=== PATIENT | female | born 1995 | race Caucasian/White ===

== ENCOUNTER 2018-06-07 16:54 | Outpatient (CLI) | payer MEDICAID ==
[2018-06-07 17:35] LABS: APPEARANCE,URINE CLOUDY; BILIRUBIN,URINE NEGATIVE (NEGATIVE); COLOR,URINE YELLOW; GLUCOSE, URINE NEGATIVE (NEGATIVE); KETONES,URINE NEGATIVE (NEGATIVE); LEUKOCYTE ESTERASE,URINE MODERATE (NEGATIVE); NITRITE,URINE NEGATIVE (NEGATIVE); PROTEIN,URINE NEGATIVE (NEGATIVE); URINE SPECIFIC GRAVITY 1.013; UROBILINOGEN,URINE NEGATIVE mg/dL (<2.0)
[2018-06-07 17:54] LABS: URINE AMPHETAMINES SCREEN NEGATIVE; URINE BARBITURATES SCREEN NEGATIVE; URINE BENZODIAZEPINES SCREEN NEGATIVE; URINE COCAINE SCREEN NEGATIVE; URINE MARIJUANA (THC) SCREEN NEGATIVE; URINE METHADONE SCREEN NEGATIVE; URINE PHENCYCLIDINE SCREEN NEGATIVE
--- NOTE | 2018-06-07 18:50 | Non Stress Test Report ---
Non Stress Test Datetime Report Generated by CPN: 06/07/2018 18:49 DEMOGRAPHIC EGA NST: 40.1 INDICATION Indication for Study: Ordered by Provider; Other Indication for Study (NST) Other: labor check MONITORING Monitor Explained: Monitor Explained; Test Explained; Patient Verbalized Understanding Time on Monitor: 06/07/2018 17:35 Time off Monitor: 06/07/2018 18:26 NST Duration: 51 NST INTERVENTIONS NST Interventions: None BABY A: [id number] BABY A Movement : Present Contraction Frequency : 2-6 FHR Baseline : 135 Accelerations : 15X15 Decelerations : None Variability : Moderate 6-25bpm NST Review: Questionable if Meets Criteria for Reactive NST NST Results: Reactive NST REPORT Report Trigger: Send Report
== END 2018-06-07 18:45 | disposition home or self-care (01) ==
LOC: LC 16:54
PROVIDERS: ATTEND Obstetrics & Gynecology
PROC: 4A1HXCZ Monitoring of Products of Conception, Cardiac Rate, External Approach (ICD-10-PCS; principal; 2018-06-07)
DX: O47.1 False labor at or after 37 completed weeks of gestation (principal); O48.0 Post-term pregnancy; Z3A.40 40 weeks gestation of pregnancy
CPT/HCPCS: 59025; 80307; 81005

== ENCOUNTER 2018-06-07 22:59 | Inpatient (IN) | payer MEDICAID ==
[2018-06-07] MEDS ORDERED: OXYTOCIN 10 UNIT/ML VIAL ONE (23:17)
[2018-06-07] MEDS ORDERED: MISOPROSTOL 0.2 MG TABLET ONE (23:17)
[2018-06-07] MEDS ORDERED: OXYTOCIN/NORMAL SALINE 20 UNIT/1,000 ML RTUINJ ONE (23:17)
[2018-06-07] MEDS ORDERED: LIDOCAINE 1% INJ-PF (10 MG/ML) 30 ML SDV ONE (23:17)
[2018-06-07] MEDS ORDERED: RINGERS SOLUTION,LACTATED 1,000 ML IV ONE (23:21)
[2018-06-07] MEDS ORDERED: RINGERS SOLUTION,LACTATED 1,000 ML IV PRN (23:21)
[2018-06-07 23:37] LABS: APPEARANCE,URINE SLIGHTLY-CLOUDY; BILIRUBIN,URINE NEGATIVE (NEGATIVE); GLUCOSE, URINE NEGATIVE (NEGATIVE); KETONES,URINE TRACE mg/dL (NEGATIVE); LEUKOCYTE ESTERASE,URINE SMALL (NEGATIVE); NITRITE,URINE NEGATIVE (NEGATIVE); PROTEIN,URINE 30 mg/dL (NEGATIVE); URINE SPECIFIC GRAVITY 1.024
[2018-06-07 23:40] LABS: COLOR,URINE DARK YELLOW
[2018-06-07 23:53] LABS: URINE AMPHETAMINES SCREEN NEGATIVE; URINE BARBITURATES SCREEN NEGATIVE; URINE BENZODIAZEPINES SCREEN NEGATIVE; URINE COCAINE SCREEN NEGATIVE; URINE MARIJUANA (THC) SCREEN NEGATIVE; URINE METHADONE SCREEN NEGATIVE; URINE PHENCYCLIDINE SCREEN NEGATIVE
[2018-06-07] MEDS ORDERED: FENTANYL CITRATE INJ/PF 100 MCG/2 ML AMPUL ONE (23:53)
[2018-06-07] MEDS ORDERED: EPHEDRINE SULFATE INJ 50 MG/1 ML AMPULE ONE (23:53)
[2018-06-07] MEDS ORDERED: PHENYLEPHRINE HCL INJ/PF 10 MG/1 ML SDV ONE (23:53)
[2018-06-07] MEDS ORDERED: BUPIVACAINE HCL 0.25 % INJ/PF (2.5 MG/1 ML) 30 ML VIAL ONE (23:54)
[2018-06-07] MEDS ORDERED: LIDOCAINE 1.5%/EPINEPHRINE INJ-PF 30 ML SDV ONE (23:54)
[2018-06-07] MEDS ORDERED: FENTANYL/BUPIVACAINE/NS/PF 300 MCG/150 ML RTUINJ EPI ONE (23:54)
[2018-06-07 23:59] LABS: ABSOLUTE LYMPHOCYTES (AUTO) 1.8 10^3/uL (0.5-4.7); ABSOLUTE MONOCYTES (AUTO) 1.2 10^3/uL (0.1-1.4); ABSOLUTE NEUT (AUTO) 14.8 10^3/uL (1.7-8.2); BASOPHILS % (AUTO) 0.2 % (0-2); EOSINOPHILS % (AUTO) 0.3 % (0-6); HEMOGLOBIN 11.8 g/dL (12.0-15.5); LYMPHOCYTES % (AUTO) 10.3 % (13-45); MEAN CORPUSCULAR HEMOGLOBIN 32.6 pg (27.0-33.4); MEAN CORPUSCULAR HGB CONC 33.7 g/dL (32.0-36.0); MEAN CORPUSCULAR VOLUME 97 fl (80-97); MONOCYTES % (AUTO) 6.7 % (3-13); PLATELET COUNT 215 10^3/uL (150-450); RED BLOOD COUNT 3.61 10^6/uL (3.72-5.28); RED CELL DISTRIBUTION WIDTH 14.3 % (11.5-14.0); SEGMENTED NEUTROPHILS % (AUTO) 82.5 % (42-78); TOTAL CELLS COUNTED % (AUTO) 100 %; WHITE BLOOD COUNT 17.9 10^3/uL (4.0-10.5)
--- NOTE | 2018-06-07 23:59 | Admission Physical ---
Datetime Report Generated by CPN: 06/07/2018 23:59 CURRENT ADMISSION Chief Complaint: Uterine Contractions Indication for Induction: Not Applicable Admit Impression : Term, Intrauterine ; Active Labor Admit Plan: Admit to Unit; Initiate Labor Protocol ALLERGIES Medication Allergies: No Medication Allergies: Sulfa (Sulfonamide Antibiotics) (06/07/2018) Latex: Unknown OBSTETRICAL HISTORY EDC: 06/06/2018 00:00 : 7 Para: 0 Term: 0 : 0 SAB: 0 IAB: 0 Ectopic: 0 Livin Cesareans: 0 VBACs: 0 Multiple Births: 0 Gestational Diabetes: No Rh Sensitization: No Incompetent Cervix: No CLAY: No Infertility: No ART Treatment: No Uterine Anomaly: No IUGR: No Hx Previous C/S: No Macrosomia: No Hx Loss/Stillborn: No PIH: No Hx : No Placenta Previa/Abruption: No Depression/PP Depression: No PTL/PROM: No Post Hemorrhage: No Current Procedures: Ultrasound Obstetrical History Comments: G1 2015 uncertain of gestational age, no D_C required G2- uncertain of gestational age, no D_C required 2017 Current SEE RECORDS Alcohol: No Marijuana : No Cocaine: No Other Illicit Drugs: No Cigarettes: Current Everyday Smoker. [id number] Cigarette Frequency: 5 - 10 per day Advised to Stop: Yes MEDICAL HISTORY Diabetes: No Blood Transfusion: No Pulmonary Disease (Asthma, TB): No Breast Disease: Yes Hypertension: No Rehab Tech Surgery: No Heart Disease: No Hosp/Surgery: No Autoimmune Disorder: No Anesthetic Complications: No Kidney Disease: No Abnormal Pap Smear: No Neuro/Epilepsy: No Psychiatric Disorders: No Other Medical Diseases: No Hepatitis/Liver Disease: No Significant Family History: No Varicosities/Phlebitis: No Trauma/Violence : No Thyroid Dysfunction: No Medical History Comments: Breast Absess in 2017 INFECTIOUS HISTORY Gonorrhea: No Genital Herpes: No Chlamydia: No Tuberculosis: No Syphilis: No Hepatitis: No HIV/AIDS Exposure: No Rash or Viral Illness: No HPV: No PHYSICAL EXAM General: Normal HEENT: Normal Neurologic: Normal Thyroid: Normal Heart: Normal Lungs: Normal Breast: Normal Back: Normal Abdomen: Normal Genitourinary Exam: Normal Extremities: Normal DTRs: Normal Pelvic Type: Adequate Vital Signs: Reviewed; Within Normal Limits VAGINAL EXAM Dilatation: 8 Effacement: 100 Station: 0 Contraction Comments: q 1-5 min MEMBRANES Membranes: Intact FETUS A EGA: 40.1 Monitoring: External US; Internal Scalp Electrode FHR- Baseline: 130-140s Accelerations: 15X15 Decelerations: None FHR Category: Category I Admit Comment: Pt arrived via ambulance; GBS neg PLANS FOR LABOR AND DELIVERY Labor and Delivery: None Pain Management: Epidural Feeding Preference: Breast Benefit of Breast Feed Discussed: Yes Circumcision: Yes INFORMED CONSENT Signature: with User ID: [email or web address]
--- NOTE | 2018-06-08 02:04 | L&D Progress Notes ---
PROGRESS NOTES Datetime Report Generated by CPN: 06/08/2018 02:03 PROGRESS NOTE Impression: Arrest of Dilatation/Descent Procedures: Sterile Vag Exam Plan: Augmentation Vital Signs : Reviewed; Within Normal Limits VAGINAL EXAM Dilatation: 8 Dilatation: 8 Effacement: 100 Effacement: 100 Station: 0 Station: 0 Contractions: q 2-4 min Contractions: q 1-5 min LAST VAGINAL EXAM-NURSING Dilitation: 8.0 Dilitation: 9.0 Dilitation: 8.0 Dilitation: 3.0 Dilitation: 3.0 Effacement: 100 Effacement: 90 Effacement: 100 Effacement: 80 Effacement: 80 Station: 0 Station: 0 Station: 0 Station: -1 Station: -1 MEMBRANES Membranes: Ruptured Membranes: Intact FETUS A FHR - Baseline: 140 Monitoring: External US Variability: Moderate 6-25bpm Accelerations: 15X15 Decelerations: Early FHR Category: Category II : 40.1 SIGNATURE SIGNATURE: ,[id number];,[id number];,[id number] SIGNATURE: ,[id number];14,[id number] SIGNATURE: 14,[id number] Signature: with User ID: [email or web address]
[2018-06-08] MEDS ORDERED: DIBUCAINE 1% OINTMENT 28 GM TP PRN (05:48)
[2018-06-08] MEDS ORDERED: ZOLPIDEM TARTRATE 5 MG TABLET PO PRN (05:48)
[2018-06-08] MEDS ORDERED: OXYTOCIN/NORMAL SALINE 20 UNIT/1,000 ML RTUINJ IV PRN (05:48)
[2018-06-08] MEDS ORDERED: DIPH/PERTUSS(ACELL)/TETANUS VAC/PF 0.5 ML SYR (>=10YO) IM PRN (05:48)
[2018-06-08] MEDS ORDERED: MEASLES,MUMPS&RUBELLA VACC/PF 0.5 ML VIAL SUBCUT PRN (05:48)
[2018-06-08] MEDS ORDERED: HYDROCODONE/ACETAMINOPHEN 5-325 MG TABLET PO PRN (05:48)
[2018-06-08] MEDS ORDERED: ONDANSETRON HCL 8 MG TABLET PO PRN (05:49)
[2018-06-08] MEDS ORDERED: IBUPROFEN 800 MG TABLET ONE (06:38)
[2018-06-08] MEDS: IBUPROFEN 800 MG TABLET PO PRN ×2 (06:52→22:18)
--- NOTE | 2018-06-08 06:56 | Delivery Summary ---
Del Sum A-C Datetime Report Generated by CPN: 06/08/2018 06:56 DELIVERY PERSONNEL DELIVERY PERSONNEL: [id number] Delivery Doctor:: Eddie Swan MD Labor and Delivery Nurse:: Myla Gayle RN Labor and Delivery Nurse:: Livier Roche RN [place]/GRADES 1 THRU 6 HOME TEACHER: Gwen Storm ST Additional Personnel: : Angeles Melton RN MATERNAL INFORMATION Delivery Anesthesia: Epidural Medications After Delivery: Pitocin Drip 20 Units/1000ml NSS Maternal Complications: None Provider Comments: Pt C_P. Head del OA. Ant and post shoulder del followed by rest of body. Baby placed on mom's abdomen. After _1min, cord clamped x 2 and cut. Cord blood collected. Placenta del intact with 3VC. LABOR SUMMARY EDC: 06/06/2018 00:00 No. Babies in Womb: 1 Attempted: No Labor Anesthesia: Epidural LABOR INFORMATION Reason for Induction: Not Applicable Onset of Labor: 06/07/2018 23:15 Complete Dilatation: 06/08/2018 03:24 Oxytocin: N/A Group B Beta Strep: Negative Antibiotics # of Doses: 0 Steroids Given: None Reason Steroids Not Administered: Not Applicable MEMBRANES Membranes Rupture Method: Spontaneous Rupture of Membranes: 06/08/2018 00:39 Length of Rupture (hr): 4.60 Amniotic Fluid Color: Clear Amniotic Fluid Amount: Small Amniotic Fluid Odor: Normal STAGES OF LABOR Stage 1 hr: 4 Stage 1 min: 9 Stage 2 hr: 1 Stage 2 min: 51 Stage 3 hr: 0 Stage 3 min: 5 Total Time in Labor hr: 6 Total Time in Labor min: 5 VAGINAL DELIVERY Episiotomy: None Laceration #1: Vaginal Laceration Extension #1: First Degree Other Laceration: Bilateral labial Laceration Repair: Yes Laceration Repair Note: Vaginal and labial lacs repaired in interrupted fashion with 3.0 Vicryl Sponge Count Correct: N/A Sharps Count Correct: Yes CSECTION DELIVERY Primary Indication: N/A Secondary Indication: N/A CSection Incidence: N/A Labor: N/A Elective: N/A CSection Incision: N/A BABY A INFORMATION Infant Delivery Date/Time: 06/08/2018 05:15 Method of Delivery: Vaginal Born in Route : No : N/A Forceps: N/A Vacuum Extraction: N/A Shoulder Dystocia : No PRESENTATION/POSITION BABY A Presentation: Cephalic Cephalic Presentation: Vertex Breech Presentation: N/A PLACENTA INFORMATION BABY A Placenta Delivery Time : 06/08/2018 05:20 Placenta Method of Delivery: Spontaneous Placenta Status: Delivered SCORES BABY A Heart Rate 1 min: >100 bpm Resp Effort 1 min: Good Cry Reflex Irritability 1 min: Cough or Sneeze or Pulls Away Muscle Tone 1 min: Active Motion Color 1 min: Body [place], Extremities Blue Resuscitation Effort 1 min: Tactile Stimulation SCORE 1 MIN: 9 Heart Rate 5 min: >100 bpm Resp Effort 5 min: Good Cry Reflex Irritability 5 min: Cough or Sneeze or Pulls Away Muscle Tone 5 min: Active Motion Color 5 min: Body [place], Extremities Blue Resuscitation Effort 5 min: Tactile Stimulation SCORE 5 MIN: 9 INFANT INFORMATION BABY A Gestational Age at Delivery: 40.2 Gestational Status: Full Term- 39- 40.6 Weeks Outcome : Liveborn Condition : Stable Infant Sex: Male IDENTIFICATION BABY A Infant Verification Date/Time: 06/08/2018 05:24 ID Band Number: [id number] Mother's Name Verified: Yes RN Verifying Infant: SRadha Gayle, RNC Additional Verifying Personnel: HRadha Storm, REFINERY OPERATOR HELPER CRUDE UNIT WEIGHT/LENGTH BABY A Birthweight (gm): 2942 Infant Weight (lb): 6 Weight (oz): 8 Infant Length (in): 18.50 Length (cm): 46.99 CORD INFORMATION BABY A No. Cord Vessels: 3 Nuchal Cord : N/A Cord Blood Taken: Yes-For Eval (Mom's Blood Type - or O+) Suction: Mouth; Nose ASSESSMENT BABY A Complications: Other Infant Complications- Other: Terminal meconium Physical Findings at Delivery: Molding of the Head Respirations: Appears Normal Skin to Skin: Yes Cage Operator/ALS Called : No Infant Care By: B. Ring RN Transferred To: Remains with Mother BABY B INFORMATION : N/A SIGNATURES Signature: with User ID: [email or web address] : I was personally available for consultation and serving as supervising physician for the MLP.
[2018-06-08] MEDS ORDERED: PRENATAL VITAMIN W DHA CAPSULE PO ONE (09:38)
[2018-06-08] MEDS ORDERED: FERROUS SULFATE 325 MG TABLET PO ONE (09:39)
[2018-06-08] MEDS ORDERED: DOCUSATE SODIUM 100 MG CAPSULE ONE (09:39)
[2018-06-08] MEDS ORDERED: SENNOSIDES/DOCUSATE 8.6-50 MG 1 EACH TABLET ONE (09:39)
[2018-06-08] MEDS: FERROUS SULFATE 325 MG TABLET PO SCH ×2 (09:48→17:25)
[2018-06-08] MEDS: PRENATAL VITAMIN W DHA CAPSULE PO SCH (09:48)
[2018-06-08] MEDS: DOCUSATE SODIUM 100 MG CAPSULE PO SCH ×2 (09:48→17:24)
[2018-06-08] MEDS: SENNOSIDES/DOCUSATE 8.6-50 MG 1 EACH TABLET PO SCH (09:48)
[2018-06-09] MEDS: IBUPROFEN 800 MG TABLET PO PRN ×3 (06:53→21:35)
[2018-06-09 07:26] LABS: HEMOGLOBIN 9.9 g/dL (12.0-15.5); MEAN CORPUSCULAR HEMOGLOBIN 33.1 pg (27.0-33.4); MEAN CORPUSCULAR HGB CONC 34.1 g/dL (32.0-36.0); MEAN CORPUSCULAR VOLUME 97 fl (80-97); PLATELET COUNT 167 10^3/uL (150-450); RED BLOOD COUNT 2.98 10^6/uL (3.72-5.28); RED CELL DISTRIBUTION WIDTH 14.4 % (11.5-14.0)
[2018-06-09] MEDS: FERROUS SULFATE 325 MG TABLET PO SCH ×2 (09:52→17:40)
[2018-06-09] MEDS: PRENATAL VITAMIN W DHA CAPSULE PO SCH (09:52)
[2018-06-09] MEDS: SENNOSIDES/DOCUSATE 8.6-50 MG 1 EACH TABLET PO SCH (09:53)
[2018-06-09] MEDS: DOCUSATE SODIUM 100 MG CAPSULE PO SCH ×2 (09:53→17:40)
--- NOTE | 2018-06-09 10:17 | PDOC PROGRESS REPORT ---
Subjective-OB Progress Note for:: 06/09/18 Subjective: reports bleeding slowing, pain controlled with current meds, denies needs Physical Exam (OB) Vital Signs: Temp Pulse Resp BP Pulse Ox 98.0 F 92 18 117/66 100 06/09/18 08:18 06/09/18 08:18 06/09/18 08:18 06/09/18 08:18 06/09/18 08:18 Intake & Output 06/08/18 06/09/18 06/10/18 06:59 06:59 06:59 Intake Total 800 Balance 800 Weight 67.4 kg - Abdomen Description: Soft, Round Hernia Present: No Fundal Description: Firm, Midline Fundal Height: u/u - u/2 - Abdominal Distension: No distension Tenderness: Nontender - Extremities Lower extremities: Shamir's sign - neg Calf: Normal, Nontender Objective-Diagnostic Laboratory: 06/09/18 07:09 06/09/18 07:09 WBC 12.0 H RBC 2.98 L Hgb 9.9 L Hct 29.0 L MCV 97 MCH 33.1 MCHC 34.1 RDW 14.4 H Plt Count 167 Assessment and Plan(PN) - Assessment and Plan (1) Normal vaginal delivery Is this a current diagnosis for this admission?: Yes - Time Spent with Patient Time with patient: Less than 15 minutes - Disposition Anticipated Discharge: Home Within: within 24 hours
[2018-06-09] MEDS: BENZOCAINE/MENTHOL AEROSOL SPRAY 56 ML TOP PRN (21:36)
[2018-06-10] MEDS: BENZOCAINE/MENTHOL AEROSOL SPRAY 56 ML TOP PRN (05:43)
[2018-06-10] MEDS: IBUPROFEN 800 MG TABLET PO PRN (05:44)
[2018-06-10 08:34] VITALS: BP 119/79
--- NOTE | 2018-06-10 08:37 | PDOC PROGRESS REPORT ---
Subjective-OB Progress Note for:: 06/10/18 Subjective: Doing well, no c/o, ready to go home, voiding, eting well, scant bleeding Physical Exam (OB) Vital Signs: Temp Pulse Resp BP Pulse Ox 97.5 F 78 16 119/79 100 06/10/18 07:52 06/10/18 07:52 06/10/18 07:52 06/10/18 07:52 06/10/18 07:52 Intake & Output 06/09/18 06/10/18 06/11/18 06:59 06:59 06:59 Intake Total 800 Balance 800 - PIH/Pre-Eclampsia Clonus: Negative Headache: Absent Epigastric Pain: No Visual Changes: No - Lochia Lochia Amount: Scant < 10 ml Lochia Color: Rubra/Red - Abdomen Description: Soft, Round Hernia Present: No Fundal Description: Firm, Midline Fundal Height: u/u - u/2 Objective-Diagnostic Laboratory: 06/09/18 07:09 Assessment and Plan(PN) - Assessment and Plan (1) Normal vaginal delivery Is this a current diagnosis for this admission?: Yes - Time Spent with Patient Time with patient: Less than 15 minutes Medications reviewed and adjusted accordingly: Yes - Disposition Anticipated Discharge: Home Within: within 24 hours
--- NOTE | 2018-06-10 08:42 | PDOC DISCHARGE SUMMARY ---
Final Diagnosis Discharge Date: 06/10/18 - Final Diagnosis (1) Normal vaginal delivery Is this a current diagnosis for this admission?: Yes Discharge Data - Discharge Medication Home Medications: Vits96/Iron Fum/Folic [ Tablet] 1 each PO DAILY 06/08/18 Gestational Age: 40.2 Reason(s) for Admission: Onset of Labor Admission Note: augmentation Procedures: NST, Ultrasound Intrapartum Procedure(s): Spontaneous Vaginal Delivery Complication(s): Laceration-Vaginal, Laceration-Labial Laceration-Degree: 1st - Data Baby 1 Male at 1 minute: 9 at 5 minutes: 9 Weight: 2.948 kg Home with Mother: Yes Complications: No - Diagnosis Test Laboratory: Temp Pulse Resp BP Pulse Ox 97.5 F 78 16 119/79 100 06/10/18 07:52 06/10/18 07:52 06/10/18 07:52 06/10/18 07:52 06/10/18 07:52 06/07/18 06/07/18 06/09/18 23:10 23:48 07:09 RBC 3.61 L 2.98 L Hgb 11.8 L 9.9 L Hct 35.0 L 29.0 L Urine Opiates Screen NEGATIVE - Discharge information/Instructions Discharge Activity: No Lifting Over 10 Pounds, No Lifting/Push/Pulling, Pelvic Rest Discharge Diet: As Tolerated, Regular Disposition: HOME, SELF-CARE Follow up with: [facility] in: 2, Weeks
[2018-06-10] MEDS: DOCUSATE SODIUM 100 MG CAPSULE PO SCH (10:25)
[2018-06-10] MEDS: FERROUS SULFATE 325 MG TABLET PO SCH (10:25)
[2018-06-10] MEDS: SENNOSIDES/DOCUSATE 8.6-50 MG 1 EACH TABLET PO SCH (10:25)
[2018-06-10] MEDS: PRENATAL VITAMIN W DHA CAPSULE PO SCH (10:25)
== END 2018-06-10 12:36 | disposition home or self-care (01) | DRG 807 ==
LOC: LC 22:59 → LR 23:22 → 2S 06-08 17:14
PROVIDERS: ADMIT Obstetrics & Gynecology; ATTEND Obstetrics & Gynecology
PROC: 10E0XZZ Delivery of Products of Conception, External Approach (ICD-10-PCS; principal; 2018-06-08)
PROC: 0HQ9XZZ Repair Perineum Skin, External Approach (ICD-10-PCS; 2018-06-08)
DX: O99.334 Smoking (tobacco) complicating childbirth (principal); Z37.0 Single live birth; O77.0 Labor and delivery complicated by meconium in amniotic fluid; F17.210 Nicotine dependence, cigarettes, uncomplicated; O70.0 First degree perineal laceration during delivery; Z3A.40 40 weeks gestation of pregnancy
CPT/HCPCS: 36415; 80307; 81005; 85025; 85027; 86592; 86850; 86900; 86901; J2370; J2590; J3010; J3490

== ENCOUNTER 2019-04-02 00:53 | Inpatient (IN) | payer MEDICAID ==
[2019-04-02] MEDS ORDERED: LIDOCAINE 1% INJ-PF (10 MG/ML) 30 ML SDV ONE (01:23)
[2019-04-02] MEDS ORDERED: OXYTOCIN 10 UNIT/ML VIAL ONE (01:23)
[2019-04-02] MEDS ORDERED: MISOPROSTOL 0.2 MG TABLET ONE (01:23)
[2019-04-02] MEDS ORDERED: OXYTOCIN/NORMAL SALINE 20 UNIT/1,000 ML RTUINJ ONE (01:24)
[2019-04-02 01:51] LABS: APPEARANCE,URINE CLOUDY; BILIRUBIN,URINE NEGATIVE (NEGATIVE); COLOR,URINE AMBER; GLUCOSE, URINE NEGATIVE (NEGATIVE); KETONES,URINE TRACE mg/dL (NEGATIVE); LEUKOCYTE ESTERASE,URINE LARGE (NEGATIVE); NITRITE,URINE NEGATIVE (NEGATIVE); PROTEIN,URINE 100 mg/dL (NEGATIVE); URINE SPECIFIC GRAVITY 1.025
[2019-04-02 01:51] LABS: ABSOLUTE EOSINOPHILS # (AUTO) 0.1 10^3/uL (0.0-0.6); ABSOLUTE LYMPHOCYTES (AUTO) 1.9 10^3/uL (0.5-4.7); ABSOLUTE NEUT (AUTO) 10.3 10^3/uL (1.7-8.2); BASOPHILS % (AUTO) 0.3 % (0-2); EOSINOPHILS % (AUTO) 0.5 % (0-6); HEMATOCRIT 33.2 % (36.0-47.0); HEMOGLOBIN 11.2 g/dL (12.0-15.5); LYMPHOCYTES % (AUTO) 14.3 % (13-45); MEAN CORPUSCULAR HEMOGLOBIN 31.5 pg (27.0-33.4); MEAN CORPUSCULAR HGB CONC 33.8 g/dL (32.0-36.0); MEAN CORPUSCULAR VOLUME 93 fl (80-97); MONOCYTES % (AUTO) 7.5 % (3-13); PLATELET COUNT 177 10^3/uL (150-450); RED BLOOD COUNT 3.56 10^6/uL (3.72-5.28); RED CELL DISTRIBUTION WIDTH 14.4 % (11.5-14.0); SEGMENTED NEUTROPHILS % (AUTO) 77.4 % (42-78); TOTAL CELLS COUNTED % (AUTO) 100 %; WHITE BLOOD COUNT 13.4 10^3/uL (4.0-10.5)
[2019-04-02] MEDS ORDERED: EPHEDRINE SULFATE INJ 50 MG/1 ML AMPULE ONE (01:55)
[2019-04-02] MEDS ORDERED: BUPIVACAINE HCL 0.25 % INJ/PF (2.5 MG/1 ML) 30 ML VIAL ONE (01:55)
[2019-04-02] MEDS ORDERED: FENTANYL/BUPIVACAINE/NS/PF 300 MCG/150 ML RTUINJ EPI ONE (01:55)
[2019-04-02] MEDS ORDERED: PENICILLIN G POTASSIUM 5,000,000 UNIT in DEXTROSE 5%-WATER 100 ML IV ONE (02:03)
[2019-04-02] MEDS ORDERED: RINGERS SOLUTION,LACTATED 1,000 ML IV ONE (02:03)
[2019-04-02] MEDS ORDERED: RINGERS SOLUTION,LACTATED 1,000 ML IV PRN (02:03)
[2019-04-02] MEDS ORDERED: PENICILLIN G-K 5 MILLION UNIT VIAL ONE (02:04)
[2019-04-02 02:09] LABS: URINE AMPHETAMINES SCREEN NEGATIVE; URINE BARBITURATES SCREEN NEGATIVE; URINE BENZODIAZEPINES SCREEN NEGATIVE; URINE COCAINE SCREEN NEGATIVE; URINE METHADONE SCREEN NEGATIVE; URINE PHENCYCLIDINE SCREEN NEGATIVE
[2019-04-02 02:12] LABS: URINE MARIJUANA (THC) SCREEN UNCONFIRMED POSITIVE
--- NOTE | 2019-04-02 04:11 | Admission Physical ---
Datetime Report Generated by CPN: 04/02/2019 04:11 CURRENT ADMISSION Chief Complaint: Uterine Contractions Indication for Induction: Not Applicable Admit Impression : Term, Intrauterine ; Active Labor Admit Impression- Other: No care Admit Plan: Admit to Unit; Initiate Labor Protocol ALLERGIES Medication Allergies: Yes Medication Allergies: Sulfa (Sulfonamide Antibiotics) (04/02/2019) Latex: No Latex Allergies OBSTETRICAL HISTORY EDC: 04/04/2019 00:00 : 6 Para: 1 SEE RECORDS Alcohol: No Marijuana : No Cocaine: No Other Illicit Drugs: No Cigarettes: Current Everyday Smoker. [id number] Cigarette Frequency: 5 - 10 per day Advised to Stop: Yes PHYSICAL EXAM General: Normal HEENT: Normal Neurologic: Normal Thyroid: Normal Heart: Normal Lungs: Normal Breast: Normal Back: Normal Abdomen: Normal Genitourinary Exam: Normal Extremities: Normal DTRs: Normal Pelvic Type: Adequate Vital Signs: Reviewed; Within Normal Limits VAGINAL EXAM Dilatation: 9 Effacement: 100 Station: -2 Contraction Comments: irregular MEMBRANES Membranes: Intact FETUS A EGA: 39.5 Monitoring: External US FHR- Baseline: 120s Variability: Moderate 6-25bpm Accelerations: 15X15 Decelerations: None FHR Category: Category I Admit Comment: w/ an IUP at 39-5/7 weeks. She states that she has had no care. She reports good movement. GBS unknown. Her cervix on arrival was 7 cm. PLANS FOR LABOR AND DELIVERY Labor and Delivery: None Pain Management: Epidural Feeding Preference: Formula Benefit of Breast Feed Discussed: Yes Circumcision: No INFORMED CONSENT Signature: with User ID: [email or web address]
[2019-04-02] MEDS ORDERED: ZOLPIDEM TARTRATE 5 MG TABLET PO PRN (06:01)
[2019-04-02] MEDS ORDERED: MEASLES,MUMPS&RUBELLA VACC/PF 0.5 ML VIAL SUBCUT PRN (06:01)
[2019-04-02] MEDS ORDERED: DIPH/PERTUSS(ACELL)/TETANUS VAC/PF 0.5 ML SYR (>=10YO) IM PRN (06:01)
[2019-04-02] MEDS ORDERED: BENZOCAINE/MENTHOL AEROSOL SPRAY 56 ML TOP PRN (06:01)
[2019-04-02] MEDS ORDERED: ACETAMINOPHEN WITH CODEINE #3 TABLET PO PRN ×2 (06:01)
[2019-04-02] MEDS ORDERED: OXYTOCIN/NORMAL SALINE 20 UNIT/1,000 ML RTUINJ IV PRN (06:01)
[2019-04-02] MEDS ORDERED: DIBUCAINE 1% OINTMENT 56 GM TP PRN (06:01)
[2019-04-02] MEDS ORDERED: PENICILLIN G POTASSIUM 2,500,000 UNIT in DEXTROSE 5%-WATER 50 ML IV SCH (06:04)
[2019-04-02] MEDS ORDERED: IBUPROFEN 800 MG TABLET ONE (06:51)
--- NOTE | 2019-04-02 07:22 | Warning Signs in Babies ---
VOD Warning Signs Datetime Report Generated by [facility]: 04/02/2019 07:21 VOD#608 -Warning Signs in Babies: Needs to be viewed. (04/02/2019 01:26:Antoine Chacon RN)
--- NOTE | 2019-04-02 07:23 | Delivery Summary ---
Del Sum A-C Datetime Report Generated by CPN: 04/02/2019 07:22 DELIVERY PERSONNEL DELIVERY PERSONNEL: [id number] Delivery Doctor:: Lay Gar MD Labor and Delivery Nurse:: Karlee Marroquin RNcylinder handler Nurse:: Antoine Chacon RN Axminster Weaver:: Lilo Rasheed RN Nursery Nurse:: Miryam Uribe RN Nursery Nurse:: Ama Elizalde RN MATERNAL INFORMATION Delivery Anesthesia: Epidural Medications After Delivery: Pitocin Bolus-Please Comment Meds After Delivery Comment: Pitocin 20 units/1000 mL NSS Estimated Blood Loss (ml): 200 Delivery QBL: 200 Delivery QBL Comment: 200 ml Maternal Complications: None Provider Comments: of a viable male @ 0538 w/ an ABEL presentation; APGARS pending; 1 st deg left periurethral lac; multiple anomalies noted LABOR SUMMARY EDC: 04/04/2019 00:00 No. Babies in Womb: 1 Attempted: No Labor Anesthesia: Epidural LABOR INFORMATION Reason for Induction: Not Applicable Onset of Labor: 04/02/2019 01:14 Complete Dilatation: 04/02/2019 04:08 Oxytocin: N/A Group B Beta Strep: Unkown Antibiotics # of Doses: 1 Antibiotics Time of Last Dose: 210 Name of Antibiotic Given: Penicillin Steroids Given: None Reason Steroids Not Administered: Not Applicable MEMBRANES Membranes Rupture Method: Artificial Rupture of Membranes: 04/02/2019 04:08 Length of Rupture (hr): 1.50 Amniotic Fluid Color: Clear Amniotic Fluid Amount: Small Amniotic Fluid Odor: Normal STAGES OF LABOR Stage 1 hr: 2 Stage 1 min: 54 Stage 2 hr: 1 Stage 2 min: 30 Stage 3 hr: 0 Stage 3 min: 5 Total Time in Labor hr: 4 Total Time in Labor min: 29 VAGINAL DELIVERY Episiotomy: None Laceration #1: Periurethral Laceration Extension #1: First Degree Laceration Repair: Yes Laceration Repair Note: First Degree Left periurethral lac repaired w/ 3-0 Chromic Sponge Count Correct: Yes Sharps Count Correct: Yes CSECTION DELIVERY Primary Indication: N/A Secondary Indication: N/A CSection Incidence: N/A Labor: N/A Elective: N/A CSection Incision: N/A BABY A INFORMATION Delivery Date/Time: 04/02/2019 05:38 Method of Delivery: Vaginal Born in Route : No : N/A Forceps: N/A Vacuum Extraction: N/A Shoulder Dystocia : No PRESENTATION/POSITION BABY A Presentation: Cephalic Cephalic Presentation: Vertex Vertex Position: Right Occipital Anterior Breech Presentation: N/A PLACENTA INFORMATION BABY A Placenta Delivery Time : 04/02/2019 05:43 Placenta Method of Delivery: Spontaneous Placenta Status: Delivered SCORES BABY A Heart Rate 1 min: >100 bpm Resp Effort 1 min: Slow, Irregular Reflex Irritability 1 min: No Response Muscle Tone 1 min: Some Flexion of Extremities Color 1 min: Blue/Pale Resuscitation Effort 1 min: Tactile Stimulation SCORE 1 MIN: 4 Heart Rate 5 min: >100 bpm Resp Effort 5 min: Slow, Irregular Reflex Irritability 5 min: [place] Muscle Tone 5 min: Some Flexion of Extremities Color 5 min: Body [place], Extremities Blue Resuscitation Effort 5 min: Tactile Stimulation; Oxygen SCORE 5 MIN: 6 Heart Rate 10 min: >100 bpm Resp Effort 10 min: Slow, Irregular Reflex Irritability 10 min: [place] Muscle Tone 10 min: Some Flexion of Extremities Color 10 min: Completely [place] SCORE 10 MIN: 7 INFORMATION BABY A Infant Outcome : Liveborn Infant Condition : Stable Sex: Male IDENTIFICATION BABY A Verification Date/Time: 04/02/2019 05:38 ID Band Number: [id number] Mother's Name Verified: Yes Infant RN Verifying Infant: SRadha Marroquin, RN Additional Verifying Personnel: A. Josse, RN WEIGHT/LENGTH BABY A Infant Birthweight (gm): 2863 Infant Weight (lb): 6 Infant Weight (oz): 5 Infant Length (in): 19.50 Length (cm): 49.53 CORD INFORMATION BABY A No. Cord Vessels: 3 Nuchal Cord : N/A Cord Blood Taken: Yes-For Eval (Mom's Blood Type - or O+) (Annotations: Data stored by CPN on behalf of user) Suction: Mouth; Nose ASSESSMENT BABY A Skin to Skin: No BABY B INFORMATION : N/A SIGNATURES Signature: with User ID: [email or web address]
[2019-04-02] MEDS: SENNOSIDES/DOCUSATE 8.6-50 MG 1 EACH TABLET PO SCH (09:40)
[2019-04-02] MEDS: PRENATAL VITAMIN W DHA CAPSULE PO SCH (09:40)
[2019-04-02] MEDS: DOCUSATE SODIUM 100 MG CAPSULE PO SCH ×2 (09:40→17:30)
[2019-04-02] MEDS: FERROUS SULFATE 325 MG TABLET PO SCH ×2 (09:40→17:30)
[2019-04-02] MEDS: IBUPROFEN 800 MG TABLET PO SCH ×2 (14:00→22:23)
[2019-04-03] MEDS: IBUPROFEN 800 MG TABLET PO SCH (05:49)
[2019-04-03 06:34] LABS: HEMATOCRIT 32.1 % (36.0-47.0); HEMOGLOBIN 10.7 g/dL (12.0-15.5); MEAN CORPUSCULAR HEMOGLOBIN 31.4 pg (27.0-33.4); MEAN CORPUSCULAR HGB CONC 33.3 g/dL (32.0-36.0); MEAN CORPUSCULAR VOLUME 94 fl (80-97); PLATELET COUNT 181 10^3/uL (150-450); RED CELL DISTRIBUTION WIDTH 14.4 % (11.5-14.0)
[2019-04-03 07:13] LABS: HEPATITS B SURFACE ANTIGEN Negative (Negative)
[2019-04-03 07:37] LABS: HEPATITIS C VIRUS AB 0.1 s/co ratio (0.0-0.9)
[2019-04-03] MEDS: FERROUS SULFATE 325 MG TABLET PO SCH (09:30)
[2019-04-03] MEDS: PRENATAL VITAMIN W DHA CAPSULE PO SCH (09:30)
[2019-04-03] MEDS: SENNOSIDES/DOCUSATE 8.6-50 MG 1 EACH TABLET PO SCH (09:32)
[2019-04-03] MEDS: DOCUSATE SODIUM 100 MG CAPSULE PO SCH (09:32)
--- NOTE | 2019-04-03 10:53 | PDOC PROGRESS REPORT ---
Subjective-OB Progress Note for:: 04/03/19 Subjective: Pt doing well, wants to go to [place] to be with baby. She is bleeding light, reports reg diet and voiding without difficulty. Physical Exam (OB) Vital Signs: Temp Pulse Resp BP Pulse Ox 98.3 F 74 16 107/70 97 04/03/19 08:16 04/03/19 08:16 04/03/19 08:16 04/03/19 08:16 04/03/19 08:16 Intake & Output 04/02/19 04/03/19 04/04/19 06:59 06:59 06:59 Intake Total 1300 Balance 1300 Weight 62.2 kg - Lochia Lochia Amount: Scant < 10 ml Lochia Color: Rubra/Red - Abdomen Description: Soft, Round Hernia Present: No Fundal Description: Firm, Midline Fundal Height: u/u - u/2 Objective-Diagnostic Laboratory: 04/03/19 06:10 04/03/19 06:10 WBC 12.0 H RBC 3.40 L Hgb 10.7 L Hct 32.1 L MCV 94 MCH 31.4 MCHC 33.3 RDW 14.4 H Plt Count 181 Assessment and Plan(PN) - Assessment and Plan (1) Normal vaginal delivery Is this a current diagnosis for this admission?: Yes - Time Spent with Patient Time with patient: Less than 15 minutes Medications reviewed and adjusted accordingly: Yes - Disposition Anticipated Discharge: Home Within: within 24 hours
--- NOTE | 2019-04-03 10:54 | PDOC DISCHARGE SUMMARY ---
Impression - Admit/DC Date/PCP Admission Date/Primary Care Provider: 04/02/19 01:26 Discharge Date: 04/03/19 - Discharge Diagnosis (1) Normal vaginal delivery Is this a current diagnosis for this admission?: Yes - Additional Information Resuscitation Status: Full Code Discharge Diet: Regular Discharge Activity: Balance Activity w/Rest, Pelvic Rest Prescriptions: Ibuprofen [Motrin 800 mg Tablet] 800 mg PO Q8HP PRN #60 tablet PRN Reason: Home Medications: Vits96/Iron Fum/Folic [ Tablet] 1 each PO DAILY 06/08/18 Ibuprofen [Motrin 800 mg Tablet] 800 mg PO Q8HP PRN #60 tablet 04/03/19 Results Laboratory Results: WBC 12.0 10^3/uL (4.0-10.5) H 04/03/19 06:10 RBC 3.40 10^6/uL (3.72-5.28) L 04/03/19 06:10 Hgb 10.7 g/dL (12.0-15.5) L 04/03/19 06:10 Hct 32.1 % (36.0-47.0) L 04/03/19 06:10 MCV 94 fl (80-97) 04/03/19 06:10 MCH 31.4 pg (27.0-33.4) 04/03/19 06:10 MCHC 33.3 g/dL (32.0-36.0) 04/03/19 06:10 RDW 14.4 % (11.5-14.0) H 04/03/19 06:10 Plt Count 181 10^3/uL (150-450) 04/03/19 06:10 Lymph % (Auto) 14.3 % (13-45) 04/02/19 01:25 Cottle % (Auto) 7.5 % (3-13) 04/02/19 01:25 Eos % (Auto) 0.5 % (0-6) 04/02/19 01:25 Baso % (Auto) 0.3 % (0-2) 04/02/19 01:25 Absolute Neuts (auto) 10.3 10^3/uL (1.7-8.2) H 04/02/19 01:25 Absolute Lymphs (auto) 1.9 10^3/uL (0.5-4.7) 04/02/19 01:25 Absolute Monos (auto) 1.0 10^3/uL (0.1-1.4) 04/02/19 01:25 Absolute Eos (auto) 0.1 10^3/uL (0.0-0.6) 04/02/19 01:25 Absolute Basos (auto) 0.0 10^3/uL (0.0-0.2) 04/02/19 01:25 Seg Neutrophils % 77.4 % (42-78) 04/02/19 01:25 Urine Color FREDI 04/02/19 01:05 Urine Appearance CLOUDY 04/02/19 01:05 Urine pH 6.0 (5.0-9.0) 04/02/19 01:05 Ur Specific [place] 1.025 04/02/19 01:05 Urine Protein 100 mg/dL (NEGATIVE) H 04/02/19 01:05 Urine Glucose (UA) NEGATIVE mg/dL (NEGATIVE) 04/02/19 01:05 Urine Ketones TRACE mg/dL (NEGATIVE) H 04/02/19 01:05 Urine Blood MODERATE (NEGATIVE) H 04/02/19 01:05 Urine Nitrite NEGATIVE (NEGATIVE) 04/02/19 01:05 Urine Bilirubin NEGATIVE (NEGATIVE) 04/02/19 01:05 Urine Urobilinogen 2.0 mg/dL (<2.0) H 04/02/19 01:05 Ur Leukocyte Esterase LARGE (NEGATIVE) H 04/02/19 01:05 Urine Ascorbic Acid NEGATIVE (NEGATIVE) 04/02/19 01:05 Urine Opiates Screen NEGATIVE 04/02/19 01:05 Urine Methadone Screen NEGATIVE 04/02/19 01:05 Ur Barbiturates Screen NEGATIVE 04/02/19 01:05 Ur Phencyclidine Scrn NEGATIVE 04/02/19 01:05 Ur Amphetamines Screen NEGATIVE 04/02/19 01:05 U Benzodiazepines Scrn NEGATIVE 04/02/19 01:05 Urine Cocaine Screen NEGATIVE 04/02/19 01:05 U Marijuana (THC) Screen UNCONFIRMED POSITIVE 04/02/19 01:05 RPR NONREACTIVE (NONREACTIVE) 04/02/19 01:25 Hep Bs Antigen Negative (Negative) 04/02/19 01:25 Hepatitis C (CAPRICE) 0.1 s/co ratio (0.0-0.9) 04/02/19 01:25 Hep C Verif Com 1 Comment (.) 04/02/19 01:25 HIV 1&2 Antibody NEGATIVE (NEGATIVE) 04/02/19 01:25 Rubella IgG Antibody 14.00 IU/mL 04/02/19 01:25 Rubella IgG Ab Interp POSITIVE 04/02/19 01:25 Blood Type O POSITIVE 04/02/19 01:25 Antibody Screen NEGATIVE 04/02/19 01:25
[2019-04-03 12:15] VITALS: BP 94/61
== END 2019-04-03 12:30 | disposition home or self-care (01) | DRG 807 ==
LOC: LC 00:53 → LR 01:26 → 2S 08:49
PROVIDERS: ADMIT Obstetrics & Gynecology; ATTEND Obstetrics & Gynecology
PROC: 10E0XZZ Delivery of Products of Conception, External Approach (ICD-10-PCS; principal; 2019-04-02)
PROC: 0HQ9XZZ Repair Perineum Skin, External Approach (ICD-10-PCS; 2019-04-02)
DX: O99.334 Smoking (tobacco) complicating childbirth (principal); Z37.0 Single live birth; O71.82 Other specified trauma to perineum and vulva; F17.210 Nicotine dependence, cigarettes, uncomplicated; Z3A.39 39 weeks gestation of pregnancy
CPT/HCPCS: 36415; 80307; 80349; 81005; 85025; 85027; 86592; 86701; 86762; 86803; 86804; 86850; 86900; 86901; 87340; 88307; 94760; G0480; J2540; J2590; J3010; J3490; J7060